=== PATIENT | female | born 1965 | race Caucasian/White ===

== ENCOUNTER 2016-10-01 08:02 | Outpatient (CLI) | payer BC | END 2016-10-01 18:35 | disposition home or self-care (01) | LOC: SMA 08:02 | PROVIDERS: ATTEND Family Medicine | DX: Z12.31 Encounter for screening mammogram for malignant neoplasm of breast (principal) | CPT/HCPCS: 77067; G0202 ==

== ENCOUNTER 2016-10-13 03:46 | Emergency (ER) | payer BC ==
[~2016-10-13] VITALS: Ht 160 cm; Wt 58.5 kg
[2016-10-13 03:46] VITALS: BP 135/77; PULSE 100; RESP 20; TEMP 97.5; O2SAT 100
--- NOTE | 2016-10-13 03:46 | NUR ---
Mahamed castanon in ED - 10/13/16 at 0408 by [email or web address] Patient to ER bed 1 to [facility] for evaluation. Side rails up. Report given to Jose TAFOYA.
--- NOTE | 2016-10-13 03:46 | NUR ---
Patient to ER bed 1 to gown for evaluation. Side rails up. Report given to Jose TAFOYA.
--- NOTE | 2016-10-13 03:55 | NUR ---
Pt presents to ED with c/o heart palpitation , occurred after she woke up at night. A&Ox4, denies SOB or chestpain, denies N/V/D. Skin intact. Will continue to monitor
--- NOTE | 2016-10-13 04:30 | NUR ---
ER at bedside examining patient.
[2016-10-13 04:40] VITALS: BP 132/76; PULSE 76; RESP 18; TEMP 97.5; O2SAT 100
--- NOTE | 2016-10-13 04:40 | NUR ---
Patient given written and verbal discharge instructions and verbalizes understanding. ER MD Hoover discussed with patient the results and treatment provided. Given copies of tests performed in ER. Patient in stable condition. ID arm band removed. No rx given. Patient educated on pain management and to follow up with PMD. Pain Scale 0/10. Opportunity for questions provided and answered.
== END 2016-10-13 04:40 | disposition home or self-care (01) ==
LOC: SED 03:46
DX: I49.9 Cardiac arrhythmia, unspecified (principal); Z88.0 Allergy status to penicillin
CPT/HCPCS: 93005; 99283

== ENCOUNTER 2017-02-25 09:08 | Emergency (ER) | payer BC ==
[~2017-02-25] VITALS: Ht 160 cm; Wt 57.2 kg
[2017-02-25 09:17] VITALS: BP_SYST 103
--- NOTE | 2017-02-25 09:17 | NUR ---
Pt BIB BLS, placed to ER bed 02. Report given to LOTTIE Mckeon.
--- NOTE | 2017-02-25 09:20 | NUR ---
ER at bedside examining patient.
--- NOTE | 2017-02-25 09:25 | NUR ---
Pt complains of feeling dizzy after getting blood drawn this morning, pt states she had nausea and 1 episode of vomiting but it was a small amount of vomit. Pt was brought in by BLS. Pt denies loss of consciousness. No other injuries/complaints per pt or noted
--- NOTE | 2017-02-25 09:36 | NUR ---
Patient given written and verbal discharge instructions and verbalizes understanding. ER MD discussed with patient the results and treatment provided. Patient in stable condition. ID arm band removed. No Rx given. Patient educated on pain management and to follow up with PMD. Pain Scale 0. Opportunity for questions provided and answered.
[2017-02-25 09:39] VITALS: BP_SYST 103
== END 2017-02-25 09:36 | disposition home or self-care (01) ==
LOC: SED 09:08
DX: F41.9 Anxiety disorder, unspecified (principal); Z88.0 Allergy status to penicillin
CPT/HCPCS: 99284

== ENCOUNTER 2018-02-03 09:58 | Outpatient (CLI) | payer BC | END 2018-02-03 19:07 | disposition home or self-care (01) | LOC: SMA 09:58 | PROVIDERS: ATTEND Obstetrics & Gynecology | DX: Z12.31 Encounter for screening mammogram for malignant neoplasm of breast (principal) | CPT/HCPCS: 77067 ==